=== PATIENT | female | born 1945 | race Caucasian/White ===

== ENCOUNTER 2018-06-11 08:50 | Inpatient (IN) | payer MEDICARE, BC, OTHER ==
[~2018-06-11] VITALS: Ht 162.6 cm; Wt 86.2 kg
[2018-06-11 08:51] VITALS: BP 149/78
[2018-06-11 09:12] LABS: ABSOLUTE EOSINOPHILS 0.2 thou/uL (0.0-0.7); ABSOLUTE LYMPHOCYTES 0.9 thou/uL (0.8-5.3); ABSOLUTE MONOCYTES 0.5 thou/uL (0.0-1.2); ABSOLUTE NEUTROPHILS 4.1 thou/uL (1.6-8.1); BASOPHILS 0.5 %; EOSINOPHILS 2.9 %; HEMATOCRIT 42.8 % (37.0-47.0); LYMPHOCYTES 16.2 %; MCHC 32.7 g/dL (28.0-37.0); MCV 85.8 fL (80.0-100.0); MONOCYTES 8.5 %; NUCLEATED RBCS 0 /100WBC; PLATELET COUNT* 206 thou/uL (150-400); POLYS 71.9 %; RBC 4.98 mil/uL (4.20-5.00); RDW-CV 16.4 % (10.5-14.5); WBC 5.7 thou/uL (4.0-11.0)
[2018-06-11] MEDS ORDERED: LIPITOR10 MG PO (09:25)
[2018-06-11] MEDS ORDERED: INVOKANA300 MG PO (09:26)
[2018-06-11] MEDS ORDERED: CALCIUM + VITA1 EACH PO (09:26)
[2018-06-11] MEDS ORDERED: LISINOPRIL20 MG PO (09:27)
[2018-06-11] MEDS ORDERED: NOVOLOG100 UNIT/1 SUBQ (09:27)
[2018-06-11] MEDS ORDERED: LANTUS SUBQ (09:27)
[2018-06-11] MEDS ORDERED: SUPER B-50 COM1 EACH PO (09:28)
[2018-06-11] MEDS ORDERED: OMEGA-31000 M1 PO (09:28)
[2018-06-11] MEDS ORDERED: SYNTHROID112 MC1 PO (09:28)
[2018-06-11] MEDS ORDERED: LOPRESSOR50 PO (09:28)
[2018-06-11] MEDS ORDERED: AMBIEN 5 MG TABL5 M1 PO (09:29)
[2018-06-11] MEDS ORDERED: VITAMIN E400 UNIT PO (09:29)
[2018-06-11 09:30] LABS: APTT 27.4 Seconds (25.0-31.3); PROTIME 10.5 Seconds (9.20-11.50)
[2018-06-11 09:32] LABS: ANION GAP 10 mmol/L (7-16); BUN 32 mg/dL (7-18); CALCIUM 8.4 mg/dL (8.5-10.1); CHLORIDE 100 mmol/L (98-107); CO2 24 mmol/L (21-32); CREATININE 1.4 mg/dL (0.6-1.3); GLUCOSE 197 mg/dL (70-99); POTASSIUM 4.1 mmol/L (3.5-5.1); SODIUM 134 mmol/L (136-145); TROPONIN-I LEVEL <0.06 ng/mL (<0.06)
[2018-06-11 09:34] LABS: ALBUMIN 3.2 g/dL (3.4-5.0); ALKALINE PHOSPHATASE 112 U/L (46-116); NT-PRO BRAIN NAT PEPTIDE 194 pg/mL (<300); SGOT 26 U/L (15-37); SGPT 27 U/L (30-65); TOTAL BILIRUBIN 0.5 mg/dL (<0.1-1.0); TOTAL PROTEIN 7.3 g/dL (6.4-8.2)
[2018-06-11 09:36] LABS: INFLUENZA B ANTIGEN None Detected (None Detect)
[2018-06-11 14:17] VITALS: BP 126/53
[2018-06-11 15:00] VITALS: BP 126/53
--- NOTE | 2018-06-11 15:01 | EKG ---
[place] [address] ELECTROCARDIOGRAM REPORT Name: CARLY SIFUENTES Room: [place] [address] ADM IN [facility]#: [id number] Admission: 06/11/18 Attend Phys: Priscilla Rendon Discharge: Date of : 43 Report #: [id number] THIS REPORT FOR: //name// [facility] ED Test Date: 2018-06-11 Test Time: 09:11:29 Pat Name: CARLY SIFUENTES Department: Room: [facility] Gender: F Truck Technician: Angelic NASSAR : 1945 Requested By: Kristian Will Order Number: [id number] MD: Ney Nance Measurements Intervals [place] Rate: 70 P: [place]: 134 QRS: 51 QRSD: 92 T: -24 QT: 488 QTc: 527 Interpretive Statements Atrial-paced rhythm Prolonged QT interval Compared to ECG 12/07/2011 17:44:15 Prolonged QT interval now present Sinus rhythm no longer present Electronically Signed On 06-11-2018 15:01:02 ANIMAL ASSISTED THERAPIST by Ney Nance [email or web address] <ELECTRONICALLY SIGNED> By: Ney Nance MD, [facility] 06/11/18 1501 0911 0911 Ney Nance MD, [facility] /EPI
[2018-06-11 15:17] VITALS: BP 184/78
[2018-06-11 20:00] VITALS: BP 157/78
[2018-06-11] MEDS ORDERED: DOXYCYCLINE 10100 MG PO (21:04)
[2018-06-12 00:10] VITALS: BP 147/75
[2018-06-12 04:40] VITALS: BP 162/62
--- NOTE | 2018-06-12 07:55 | CON ---
[address] [address] CONSULTATION Name: CARLY SIFUENTES Room: [address] ADM IN [facility]#: [id number] Admission: 06/11/18 Attend Phys: Priscilla Rendon Discharge: Date of : 43 Report #: [id number] THIS REPORT FOR: //name// CC: Helena Galindo DATE OF SERVICE: 06/11/2018 INFECTIOUS DISEASE CONSULTATION: ATTENDING PHYSICIAN: René Galindo DO. REASON FOR EVALUATION: Influenza A complicated by respiratory distress. HISTORY OF PRESENT ILLNESS: Chart reviewed, patient examined. This is a 72-year-old woman with longstanding diabetes mellitus who apparently had been ill for the last 6 days with progressive dyspnea. She does appreciate some wheezes and a nonproductive cough. It is not clear if she had any significant fevers. Admits some chills, had some significant anorexia with poor p.o. intake particularly fluids, who had been evaluated in the Emergency Room, was found to have a positive influenza A antigen. Chest x-ray showed no acute process. Lactic acid was 1.9, did have a creatinine mildly elevated at 1.4. It is notable she is on chronic doxycycline for suppressive therapy for right femur issue. She is lucid at this point. Denies any significant gastrointestinal related pain or discomfort. She has had some loose stools recently. Of note, she had C. diff colitis diagnosed roughly 3 years ago. She had been hospitalized with pneumonitis in the past as well. She was empirically dosed with ceftriaxone, oseltamivir. ALLERGIES: ASPIRIN, IBUPROFEN. CURRENT MEDICINES: Include Tamiflu 30 b.i.d. Home medicines include atorvastatin, Invokana, insulin, lisinopril, metoprolol, levothyroxine, vitamin B complex, zolpidem. PAST MEDICAL HISTORY: Includes diabetes mellitus type 2, insulin requiring. Does have a history of thyroid cancer, pacemaker placement, previous cholecystectomy, right femur fracture, knee replacement, has been on chronic suppressive therapy presumably for chronic infection. SOCIAL HISTORY: Former smoker. Regular ethanol, although limited. No illicit drug use. FAMILY HISTORY: [place] [address] CONSULTATION Name: CARLY SIFUENTES Room: [address] IN [facility]#: [id number] Admission: 06/11/18 Attend Phys: Priscilla Rendon Discharge: Date of : 43 Report #: [id number] REVIEW OF SYSTEMS: Otherwise, 10-point review of systems unremarkable except as noted above history of present illness. PHYSICAL EXAMINATION: GENERAL: She is pleasant, alert, cooperative. She is in moderate distress primarily secondary to respiratory issues. Appears mildly undernourished. She is lucid at this point. VITAL SIGNS: Temperature 98.4, pulse 78, respirations 20, blood pressure 184/78. SKIN: Warm, dry. HEENT: Normocephalic. Extraocular muscles intact. NECK: Supple. LUNGS: She has got bilateral wheezes, has got some coarse breath sounds, nothing as far as consolidation. HEART: Regular. I do not appreciate a murmur. ABDOMEN: Soft, mildly distended. There are no peritoneal signs. No tenderness. GENITOURINARY: Deferred. RECTAL: Deferred. LABORATORY DATA: Glucose of 124. Lactic acid 1.8. PT of 10.5 and INR 1.0. PTT of 27.4. Chest x-ray generally no acute cardiopulmonary process. Influenza A antigen was positive, B was not detected. Electrolytes: Sodium 134, potassium 4.1, chloride 100, bicarbonate is 24, BUN and creatinine 32 and 1.4, glucose of 197. LFTs unremarkable. Albumin of 3.2, total protein of 7.3, estimated GFR of 37. CBC: White count of 5.7, H and H 14.0 and 42.8, platelets of 206. Differential unremarkable. ASSESSMENT: 1. Influenza A. I think we will continue the oseltamivir at this point, adjust the dosing to 75 b.i.d., I think certain degree of dehydration may improve, it does show evidence of pneumonitis, followup chest x-ray which we planned tomorrow, but at this point, would hold the antibacterials as the ceftriaxone which will give us 24 hours of coverage at this point. She will need symptomatic treatment, there is question of corticosteroids; although, she fears her blood sugars will be quite elevated as a result. <ELECTRONICALLY SIGNED> By: Roman Joseph MD 06/12/18 0755 [id number] [id number] Joseph MD /nt
[2018-06-12 08:00] VITALS: BP 134/74
[2018-06-12] MEDS ORDERED: TAMIFLU75 MG PO (09:20)
[2018-06-12] MEDS ORDERED: ALBUTEROL2.5 MG/31 INH (09:20)
[2018-06-12 12:10] VITALS: BP 151/83
[2018-06-12 16:38] VITALS: BP 152/68
[2018-06-12 20:00] VITALS: BP 150/75
[2018-06-13] VITALS: BP 138/64
[2018-06-13 04:00] VITALS: BP 147/76
[2018-06-13 08:00] VITALS: BP 165/74
[2018-06-13 09:44] LABS: URINE BILIRUBIN NEGATIVE (Negative); URINE BLOOD NEGATIVE (Negative); URINE CLARITY CLEAR; URINE COLOR YELLOW; URINE GLUCOSE-RANDOM 3+ (Negative); URINE KETONES 2+ (Negative); URINE LEUKOCYTES-REFLEX NEGATIVE (Negative); URINE NITRITE-REFLEX NEGATIVE (Negative); URINE PROTEIN NEGATIVE (Negative); URINE UROBILINOGEN 0.2 E.U./dl (0.2-1.0)
[2018-06-13 11:48] VITALS: BP 144/75
[2018-06-13 16:00] VITALS: BP 158/84
[2018-06-13 20:44] VITALS: BP 120/68
[2018-06-14] VITALS: BP 140/78
[2018-06-14 04:00] VITALS: BP 143/67
[2018-06-14 04:55] LABS: HEMATOCRIT 36.4 % (37.0-47.0); HEMOGLOBIN 12.1 gm/dL (12.0-15.0); MCH 28.5 pg (26.0-34.0); MCHC 33.3 g/dL (28.0-37.0); MCV 85.8 fL (80.0-100.0); MPV 9.1 fl. (7.2-11.1); RBC 4.24 mil/uL (4.20-5.00); WBC 5.2 thou/uL (4.0-11.0)
[2018-06-14 05:04] LABS: CALCIUM 8.1 mg/dL (8.5-10.1); CREATININE 0.9 mg/dL (0.6-1.3); POTASSIUM 3.9 mmol/L (3.5-5.1)
[2018-06-14 08:25] VITALS: BP 161/77
[2018-06-14 12:59] VITALS: BP 161/77
[2018-06-14] MEDS ORDERED: VITAMIN B-12500 MCG PO (13:27)
[2018-06-14] MEDS ORDERED: TYLENOL EXTRA500 MG PO (13:33)
== END 2018-06-14 14:37 | disposition home or self-care (01) | DRG 193 ==
LOC: M.ERS 08:50 → M.TBA-ER 10:18 → M.2W 10:18
PROVIDERS: Family Medicine; ADMIT Internal Medicine
DX: J10.1 Influenza due to other identified influenza virus with other respiratory manifestations (principal); N17.0 Acute kidney failure with tubular necrosis; E11.42 Type 2 diabetes mellitus with diabetic polyneuropathy; R19.7 Diarrhea, unspecified; Z96.651 Presence of right artificial knee joint; Z95.0 Presence of cardiac pacemaker; Z87.81 Personal history of (healed) traumatic fracture; E11.22 Type 2 diabetes mellitus with diabetic chronic kidney disease; Z91.81 History of falling; Z90.49 Acquired absence of other specified parts of digestive tract; Z87.891 Personal history of nicotine dependence; Z85.850 Personal history of malignant neoplasm of thyroid; Z79.4 Long term (current) use of insulin; Z79.899 Other long term (current) drug therapy; Z88.6 Allergy status to analgesic agent; Z88.8 Allergy status to other drugs, medicaments and biological substances; Z82.49 Family history of ischemic heart disease and other diseases of the circulatory system; N18.3 Chronic kidney disease, stage 3 (moderate)

== ENCOUNTER 2018-09-14 17:24 | Emergency (ER) | payer BC, MEDICARE, OTHER ==
[~2018-09-14] VITALS: Ht 160 cm; Wt 90.3 kg
[~2018-09-14 17:24] MED LIST: ALBUTEROL2.5 MG/31 INH; AMBIEN 5 MG TABL5 M1 PO; CALCIUM + VITA1 EACH PO; DOXYCYCLINE 10100 MG PO; INVOKANA300 MG PO; LANTUS SUBQ; LIPITOR10 MG PO; LISINOPRIL20 MG PO; LOPRESSOR50 PO; NOVOLOG100 UNIT/1 SUBQ; OMEGA-31000 M1 PO; SUPER B-50 COM1 EACH PO; SYNTHROID112 MC1 PO; TAMIFLU75 MG PO; TYLENOL EXTRA500 MG PO; VITAMIN B-12500 MCG PO; VITAMIN E400 UNIT PO
[2018-09-14] MEDS ORDERED: BASAGLAR K100 UNIT/1 SUBQ (17:47)
[2018-09-14] MEDS ORDERED: CALCIUM CITRAT250 MG PO (17:48)
[2018-09-14] MEDS ORDERED: CLARITIN10 MG PO (17:48)
[2018-09-14] MEDS ORDERED: VITAMIN D1000 UNI1 PO (17:48)
[2018-09-14] MEDS ORDERED: NOVOLOG100 UNIT/1 SUBQ ×2 (17:49→17:50)
[2018-09-14] MEDS ORDERED: HYDROCHLOROTHIA25 M2 PO (17:49)
[2018-09-14] MEDS ORDERED: IRON325 PO (17:50)
[2018-09-14] MEDS ORDERED: SYNTHROID125 MC1 PO (17:50)
[2018-09-14] MEDS ORDERED: PRILOSEC OTC20 MG PO (17:51)
[2018-09-14] MEDS ORDERED: B COMPLEX WITH1 EAC1 PO (17:52)
[2018-09-14 18:20] LABS: HEMATOCRIT 41.9 % (37.0-47.0); HEMOGLOBIN 13.9 gm/dL (12.0-15.0); MCH 29.8 pg (26.0-34.0); MCHC 33.1 g/dL (28.0-37.0); MCV 90.3 fL (80.0-100.0); MPV 9.7 fl. (7.2-11.1); NUCLEATED RBCS 0 /100WBC; PLATELET COUNT* 176 thou/uL (150-400); RBC 4.64 mil/uL (4.20-5.00); RDW-CV 15.3 % (10.5-14.5); WBC 7.2 thou/uL (4.0-11.0)
[2018-09-14 18:28] LABS: ANION GAP 13 mmol/L (7-16); BUN 24 mg/dL (7-18); CALCIUM 7.8 mg/dL (8.5-10.1); CHLORIDE 101 mmol/L (98-107); CO2 20 mmol/L (21-32); CREATININE 1.2 mg/dL (0.6-1.3); GLUCOSE 200 mg/dL (70-99); POTASSIUM 3.9 mmol/L (3.5-5.1); SODIUM 134 mmol/L (136-145)
[2018-09-14 18:39] LABS: ALBUMIN 3.2 g/dL (3.4-5.0); ALKALINE PHOSPHATASE 121 U/L (46-116); LIPASE 89 U/L (73-393); NT-PRO BRAIN NAT PEPTIDE 1586 pg/mL (<300); SGOT 24 U/L (15-37); SGPT 34 U/L (30-65); TOTAL BILIRUBIN 0.8 mg/dL (<0.1-1.0); TOTAL PROTEIN 6.9 g/dL (6.4-8.2); TROPONIN-I LEVEL <0.06 ng/mL (<0.06)
[2018-09-14 19:14] LABS: ABSOLUTE EOSINOPHILS 0.2 thou/uL (0.0-0.7); ABSOLUTE LYMPHOCYTES 0.1 thou/uL (0.8-5.3); ABSOLUTE MONOCYTES 0.1 thou/uL (0.0-1.2); ABSOLUTE NEUTROPHILS 6.7 thou/uL (1.6-8.1)
[2018-09-14 19:15] LABS: PLATELET ESTIMATE ADEQUATE
[2018-09-14 21:33] LABS: URINE BILIRUBIN NEGATIVE (Negative); URINE BLOOD NEGATIVE (Negative); URINE CLARITY CLEAR; URINE COLOR YELLOW; URINE GLUCOSE-RANDOM 2+ (Negative); URINE KETONES TRACE (Negative); URINE LEUKOCYTES-REFLEX NEGATIVE (Negative); URINE NITRITE-REFLEX NEGATIVE (Negative); URINE PROTEIN NEGATIVE (Negative); URINE UROBILINOGEN 0.2 E.U./dl (0.2-1.0)
[2018-09-14] MEDS ORDERED: ONDANSETRON HCL4 M2 PO (22:10)
[2018-09-14] MEDS ORDERED: BENTYL 20 MG TA20 M1 PO (22:11)
[2018-09-14 22:24] VITALS: BP 136/75
--- NOTE | 2018-09-15 15:38 | EKG ---
[place] [address] ELECTROCARDIOGRAM REPORT Name: CARLY SIFUENTES Room: [facility]#: [id number] Admission: 09/14/18 Attend Phys: Discharge: 09/14/18 Date of : 43 Report #: [id number] THIS REPORT FOR: //name// [facility] ED Test Date: 2018-09-14 Test Time: 18:16:19 Pat Name: CARLY SIFUENTES Department: Room: Gender: F Editor Map: THOMAS : 1945 Requested By: Bettie Carbone Order Number: [id number] MD: Missael Lester Measurements Intervals [place] Rate: 70 P: [place]: 151 QRS: 15 QRSD: 96 T: 28 QT: 389 QTc: 420 Interpretive Statements Atrial-paced complexes Nonspecific ST segment depression Compared to ECG 06/11/2018 09:11:29 Ventricular-paced complex(es) or rhythm no longer present Prolonged QT interval no longer present Electronically Signed On 09-15-2018 15:38:41 CDT by Missael Lester [email or web address] <ELECTRONICALLY SIGNED> By: Missael Lester MD, [facility] 09/15/18 1538 181 15 Missael Lester MD, [facility] /EPI
== END 2018-09-14 22:25 | disposition home or self-care (01) ==
LOC: M.ERS 17:24
PROVIDERS: Nurse Practitioner Family
DX: K52.9 Noninfective gastroenteritis and colitis, unspecified (principal); E11.65 Type 2 diabetes mellitus with hyperglycemia; Z90.49 Acquired absence of other specified parts of digestive tract; Z85.850 Personal history of malignant neoplasm of thyroid; Z79.4 Long term (current) use of insulin; Z88.6 Allergy status to analgesic agent

== ENCOUNTER 2018-11-26 15:13 | Emergency (ER) | payer BC, MEDICARE, OTHER ==
[~2018-11-26] VITALS: Ht 160 cm; Wt 86.2 kg
[~2018-11-26 15:13] MED LIST changes: +B COMPLEX WITH1 EAC1 PO; +BASAGLAR K100 UNIT/1 SUBQ; +BENTYL 20 MG TA20 M1 PO; +CALCIUM CITRAT250 MG PO; +CLARITIN10 MG PO; +HYDROCHLOROTHIA25 M2 PO; +IRON325 PO; +ONDANSETRON HCL4 M2 PO; +PRILOSEC OTC20 MG PO; +SYNTHROID125 MC1 PO; +VITAMIN D1000 UNI1 PO
[2018-11-26 16:49] VITALS: BP 150/83
== END 2018-11-26 16:49 | disposition home or self-care (01) ==
LOC: M.ERS 15:13
DX: T18.128A Food in esophagus causing other injury, initial encounter (principal); E11.9 Type 2 diabetes mellitus without complications; Z88.6 Allergy status to analgesic agent; Z95.0 Presence of cardiac pacemaker; Z90.49 Acquired absence of other specified parts of digestive tract; Z79.4 Long term (current) use of insulin; Z85.850 Personal history of malignant neoplasm of thyroid